=== PATIENT | female | born 1945 | race Caucasian/White ===

== ENCOUNTER → 2022-10-11 | Outpatient (CLI) | payer MEDICARE, OTHER ==
--- NOTE | 2022-10-11 14:12 | Diagnostic Imaging Report ---
INDICATION: Mid back pain COMPARISON: None available TECHNIQUE: Frontal and lateral radiographs of the chest dated 10/11/2022. FINDINGS: The cardiac silhouette is within normal limits in size. No significant pulmonary vascular congestion. The lungs are hyperexpanded with flattening of the diaphragm and prominence of the anterior clear space. The lungs are clear of focal pulmonary opacity. No pleural effusion. No pneumothorax. Mild scattered osseous degenerative changes without acute osseous abnormality. IMPRESSION: Background chronic obstructive pulmonary disease without superimposed acute cardiopulmonary abnormality. Dictated by: Dictated on workstation # [id number]
--- NOTE | 2022-10-11 15:31 | Diagnostic Imaging Report ---
EXAMINATION: Left shoulder radiographs, 3 views. COMPARISON: None. HISTORY: 76-year-old female, left shoulder pain. FINDINGS: There is widening of the acromioclavicular joint. The distal clavicle was not superiorly subluxed relative to the acromion. The humeral head is normally aligned relative to the glenoid. There is no glenohumeral joint space loss. There is no identified acute fracture. IMPRESSION: 1. Findings consistent with acromioclavicular joint separation injury of unclear exact age. 2. Intact glenohumeral joint. 3. No acute fracture. Dictated by: Dictated on workstation # [id number]
== END ==
LOC: RAD FS 13:29
PROVIDERS: ATTEND Emergency Medicine
DX: J44.9 Chronic obstructive pulmonary disease, unspecified (principal); M54.6 Pain in thoracic spine
CPT/HCPCS: 71046; 73030